=== PATIENT | female | born 1980 | race African-American/Black ===

== ENCOUNTER 2018-10-19 04:49 | Emergency (ER) | payer MEDICAID, OTHER ==
[~2018-10-19] VITALS: Ht 160 cm; Wt 44.0 kg
[2018-10-19] MEDS ORDERED: HYDROCODONE/ACETAMINOPHEN 5/325MG TABLET PO STA (06:29)
[2018-10-19 06:56] VITALS: BP 113/80
== END 2018-10-19 06:58 | disposition home or self-care (01) ==
LOC: ER 04:49
DX: S22.41XA Multiple fractures of ribs, right side, initial encounter for closed fracture (principal); F12.10 Cannabis abuse, uncomplicated; E11.9 Type 2 diabetes mellitus without complications; W50.1XXA Accidental kick by another person, initial encounter; Y93.89 Activity, other specified; Y92.89 Other specified places as the place of occurrence of the external cause; Y99.8 Other external cause status; Z88.0 Allergy status to penicillin
CPT/HCPCS: 99283